=== PATIENT | female | born 1980 | race African-American/Black ===

== ENCOUNTER 2018-12-03 04:59 | Day surgery (SDC) | payer OTHER ==
[2018-11-26 11:22] VITALS: BMI 28.3
[2018-12-03] MEDS ORDERED: SUCCINYLCHOLINE CHLORIDE 200 MG/10 ML VIAL ONE (07:11)
[2018-12-03] MEDS ORDERED: PROPOFOL 20 ML ONE ×3 (07:11)
[2018-12-03] MEDS ORDERED: DEXAMETHASONE SOD PHOSPHATE/PF 10 MG/ML SDV ONE (07:17)
[2018-12-03] MEDS ORDERED: ROPIVACAINE HCL 0.5% 30ML VIAL ONE (07:17)
[2018-12-03] MEDS ORDERED: MIDAZOLAM HCL 2 MG/2 ML SINGLE DOSE VIAL ONE ×2 (07:18)
[2018-12-03] MEDS ORDERED: ceFAZolin SODIUM 1 GM VIAL ONE (08:31)
[2018-12-03] MEDS ORDERED: KETOROLAC TROMETHAMINE 30 MG/1 ML VIAL ONE (08:31)
[2018-12-03] MEDS ORDERED: DEXAMETHASONE SOD PHOSPHATE 4 MG/1 ML VIAL ONE (08:31)
--- NOTE | 2018-12-03 08:33 | HP ---
Satellite H - Chief Complaint Chief Complaint: left shoulder pain - Past Medical History Allergies/Adverse Reactions: Allergies Allergy/AdvReac Type Severity Reaction Status Date / Time No Known Allergies Allergy Verified 12/03/18 06:35 ...LMP: 11/14/18 - Current Medications Current Medications: Home Medications Medication Instructions Recorded Hydrocodone/Acetaminophen 1 each PO Q6H #40 tablet MDD 4 12/03/18 [Hydrocodone-Acetamin 5-325 mg] Satellite Physical Exam - Physical Examination Vital Signs: Vital Signs Period Temp Pulse Resp BP Sys/Cardona Pulse Ox Last 24 Hr 97.9 F-97.9 F 73-73 20-20 138-138/86-86 100 General Appearance: Well Nourished, Well Developed, Alert & Oriented x3 ENT: Clear Lung: Normal air movement Heart: Regular rate & rhythm Extremities: Other (left shoulder- + ttp, decr rom, + neer, + oneil, nvi MRI + impingement) Neurological: Intact, Alert, Oriented Satellite Impression/Plan - Impression/Plan Impression: left shoulder impingement Operative Procedure: left shoulder arthroscopy with MARYANN SPAIN Date to be Performed: 12/03/18
[2018-12-03] MEDS ORDERED: ceFAZolin SODIUM 1 GM VIAL IVPB ONE (08:36)
--- NOTE | 2018-12-03 09:42 | OP ---
Operative Note - Note: Operative Date: 12/03/18 Pre-Operative Diagnosis: left shoulder pain, impingement syndrome, adhesive capsulitis Operation: left shoulder arthroscopy, subacromial decompression, distal clavicle excision, manipulation under anesthesia Post-Operative Diagnosis: Same as Pre-op Surgeon: Christian Gray Anesthesiologist/FORENSIC TOXICOLOGIST: Bryant Trinh Anesthesia: General, Local Specimens Removed: shavings Estimated Blood Loss (mls): 25 Drains, Volume Out (mls): 0 Blood Volume Replaced (mls): 0 Fluid Volume Replaced (mls): 700 Operative Report Dictated: Yes
[2018-12-03] MEDS ORDERED: ONDANSETRON 4 MG/2 ML VIAL IVPUSH PRN (10:07)
[2018-12-03] MEDS ORDERED: oxyCODONE HCL 5 MG TABLET PO PRN ×2 (10:07)
[2018-12-03] MEDS ORDERED: LACTATED RINGERS SOLUTION 1,000 ML IV SCH (10:15)
--- NOTE | 2018-12-03 10:21 | OP ---
DATE OF OPERATION: 12/03/2018 PREOPERATIVE DIAGNOSIS: Left shoulder pain, adhesive capsulitis, and subacromial impingement. POSTOPERATIVE DIAGNOSIS: Left shoulder pain, adhesive capsulitis, and subacromial impingement. PROCEDURE: Left shoulder arthroscopy, subacromial decompression, distal clavicle excision, and manipulation under anesthesia. SURGEON: Christian Gray MD ASSISTANTS: None. DELIVERY LEAD: Bryant Trinh CRNA ANESTHESIA: Left interscalene block and LMA anesthesia. DRAINS: None. COMPLICATIONS: None. BLOOD LOSS: Minimal. BLOOD GIVEN: None. FLUID REPLACEMENT: 700 mL. SPECIMENS: None. DESCRIPTION OF PROCEDURE: This patient is a 38-year-old female with a preoperative diagnosis of a left shoulder pain, adhesive capsulitis, and subacromial impingement. After understanding the potential risks, complications, alternatives, and benefits of the surgery vs. non-surgical treatment, the patient elected to undergo this procedure. The patient was brought to the operating room, peripheral IV placed, and IV sedation was given. One gram of IV Ancef was given. LMA anesthesia was induced. She was placed into the beach-chair position with ample padding throughout the left upper extremity, was prepped and draped in sterile fashion. The bony landmarks were marked out with a marking pen. Posterior portal was established. A diagnostic arthroscopy was performed in the glenohumeral joint. The glenohumeral joint looked good. The labrum, the biceps tendon, the humeral head, the undersurface of the rotator cuff all looked pristine. I did a manipulation under anesthesia, and frankly, there was very little to manipulate. I felt a small increase in range of motion afterwards. There was never a point that it was very tight. I never felt like I stretched or tore through any adhesive capsule or scar tissue, and overall range of motion was practically normal. Next, our attention was turned to the subacromial space. Patient did have a lot of adhesive inflammatory bursitis. The lateral portal was established with a spinal needle, and Green cannula was introduced into the left subacromial space using previous scars. I did an extensive soft tissue debridement/bursectomy with the ArthroCare Wand. Once this was done, I looked at the top surface of the rotator cuff, and it looked pristine. I put the arm through a full range of motion. There was no rotator cuff tear. The patient did have a moderate-sized subclavicular and a large subacromial bony spur. These were both taken down with a 5.5-mm oval cindy. Photographs were taken before and after. I fine-tuned the decompression with the cindy in reverse and the shaver. Again, I looked at the rotator cuff through a full range of motion. Again, there were no points of compression, there was no impingement, but the patient did have large spurs, which were removed. The area was copiously irrigated and washed out. All instrumentation, excess saline, and debris were removed. The arthroscopic portals were closed with 3-0 nylon sutures. The area was then washed and dried and covered with Aquacel dressing. She was extubated and brought down out of the beach-chair position. A sling was applied. Total surgical time was about 40 minutes. There were no complications during the case. Patient tolerated the procedure quite well and was brought to the ambulatory recovery room in stable condition. Ishan [id number]
[2018-12-03 13:36] VITALS: BP 130/78; PULSE 68; TEMP 98
--- NOTE | 2018-12-04 17:27 | PATH ---
Surgical Pathology Report Patient Name: RIZWAN BONNER Med. Rec. #: [id number] /Age/Gender: 1980 (Age: 38) / F Account: [id number] Location: [facility] SURGICAL Taken: 12/03/2018 Received: 12/03/2018 Reported: 12/04/2018 Physicians: Christian Gray M.D. Specimen(s) Received LEFT SHOULDER SHAVINGS Clinical History Left shoulder impingement Final Diagnosis SHOULDER SHAVINGS, LEFT, ARTHROSCOPY: FRAGMENTS OF BENIGN CARTILAGE, DENSE FIBROCONNECTIVE TISSUE, ADIPOSE TISSUE, BONE, AND SKELETAL MUSCLE. Electronically Signed Fiona Gan M.D. Gross Description Received in formalin, labeled "left shoulder shavings" is a 5.0 x 3.5 x 0.3 cm. aggregate of dietz-yellow soft tissue fragments. A abrasives sales representative portion is submitted in one cassette. /12/03/2018 saudi12/03/2018
== END 2018-12-03 13:37 | disposition home or self-care (01) ==
LOC: JASU-SURG 04:59
PROVIDERS: ATTEND Orthopaedic Surgery
PROC: 0RNK4ZZ Release Left Shoulder Joint, Percutaneous Endoscopic Approach (ICD-10-PCS; principal; 2018-12-03 08:00)
PROC: 0PBB4ZZ Excision of Left Clavicle, Percutaneous Endoscopic Approach (ICD-10-PCS; 2018-12-03 08:00)
DX: M75.02 Adhesive capsulitis of left shoulder (principal); M75.42 Impingement syndrome of left shoulder; M25.512 Pain in left shoulder
CPT/HCPCS: 84703; 88304-TC; 94760

== ENCOUNTER 2019-10-27 17:19 | Emergency (ER) | payer OTHER ==
[2019-10-27 17:40] VITALS: BMI 25.5
--- NOTE | 2019-10-27 19:28 | PDOC ---
History of Present Illness - General Chief Complaint: Chest Pain Stated Complaint: CHEST PAIN, FEVER Time Seen by Provider: 10/27/19 18:48 History Source: Patient Exam Limitations: No Limitations - History of Present Illness Initial Comments: Patient is a 36-year-old female with history of fibroids, menometrorrhagia, anemia on B12 and iron, complaining of chest pain since today. Described the pain tightness and a pressure to the left chest which is 7.5/10. States has had this same pain when her iron was low. She took Motrin for the pain with no relief of symptoms. Also had some pain to the abdomen, which is chronic and she was told was caused by the fibroid. PMD: Dr. Mary Montgomery PMHX: as above PSOCHX neg cig, drug, etoh ALL: NKDA GENERAL/CONSTITUTIONAL: [No fever or chills. No weakness. No weight change.] HEAD, EYES, EARS, NOSE AND THROAT: [No change in vision. No ear pain or discharge. No sore throat.] CARDIOVASCULAR: [(+) chest pain or shortness of breath.] RESPIRATORY: [No cough, wheezing, or hemoptysis.] GASTROINTESTINAL: [No nausea, vomiting, diarrhea or constipation. No rectal bleeding.] GENITOURINARY: [No dysuria, frequency, or change in urination.] MUSCULOSKELETAL: [No joint or muscle swelling or pain. No neck or back pain.] SKIN AND BREASTS: [No rash or easy bruising.] NEUROLOGIC: [No headache, vertigo, loss of consciousness, or loss of sensation.] PSYCHIATRIC: [No depression or anxiety.] ENDOCRINE: [No increased thirst. No abnormal weight change.] HEMATOLOGIC/LYMPHATIC: [No anemia, easy bleeding, or history of blood clots.] ALLERGIC/IMMUNOLOGIC: [No hives or skin allergy. No latex allergy.] GENERAL: [The patient is awake, alert, and fully oriented, in no acute distress. ] HEAD: [Normal with no signs of trauma.] EYES: [Pupils equal, round and reactive to light, extraocular movements intact, sclera anicteric, conjunctiva clear.] ENT: [Ears normal, nares patent, oropharynx clear without exudates. Moist mucous membranes.] NECK: [Normal range of motion, supple without lymphadenopathy, JVD, or masses.] LUNGS: [Breath sounds equal, clear to auscultation bilaterally. No wheezes, and no crackles.] HEART: [Regular rate and rhythm, normal S1 and S2 without murmur, rub.] ABDOMEN: [Soft, mild tenderness to the left side, normoactive bowel sounds. No guarding, no rebound. No masses.] EXTREMITIES: [Normal range of motion, no edema. No clubbing or cyanosis. No cords, erythema, or tenderness.] NEUROLOGICAL: [Cranial nerves II through XII grossly intact. Normal speech, normal gait.] PSYCH: [Normal mood, normal affect.] SKIN: [Warm, Dry, normal turgor, no rashes or lesions noted.] 10/31/19 02:03 Past History - Past Medical History Allergies/Adverse Reactions: Allergies Allergy/AdvReac Type Severity Reaction Status Date / Time No Known Allergies Allergy Verified 10/27/19 17:36 Home Medications: Ambulatory Orders Hydrocodone/Acetaminophen [Hydrocodone-Acetamin 5-325 mg] 1 each PO Q6H #40 tablet MDD 4 12/03/18 - Surgical History Orthopedic Surgery: Yes (left shoulder, left knee) - Psycho Social/Smoking Cessation Hx Smoking History: Never smoked Have you smoked in the past 12 months: No Hx Alcohol Use: No Drug/Substance Use Hx: No Hx Substance Use Treatment: No *Physical Exam - Vital Signs Last Vital Signs Temp Pulse Resp BP Pulse Ox 97.9 F 64 18 164/93 100 10/28/19 01:40 10/28/19 01:40 10/28/19 01:40 10/28/19 01:40 10/28/19 01:40 ED Treatment Course - LABORATORY CBC & Chemistry Diagram: 10/27/19 19:30 10/27/19 19:30 - ADDITIONAL ORDERS Additional order review: 10/27/19 19:30 RBC 3.77 MCV 83.7 MCHC 32.5 RDW 13.9 D MPV 9.2 Neutrophils % 70.7 D Lymphocytes % 23.5 D Monocytes % 4.4 Eosinophils % 0.7 Basophils % 0.7 Medical Decision Making - Medical Decision Making Patient is a 36-year-old female with history of fibroids, menometrorrhagia, anemia on B12 and iron, complaining of chest pain since today. Described the pain tightness and a pressure to the left chest which is 7.5/10. States has had this same pain when her iron was low. She took Motrin for the pain with no relief of symptoms. Also had some pain to the abdomen, which is chronic and she was told was caused by the fibroid. Family history negative Patient with history of anemia will get labs rule out anemia. Labs reviewed noted to have hemoglobin of 10. No intervention required at this time will discharge. I discussed the physical exam findings, ancillary test results and final diagnoses with the patient. I answered all of the patient's questions. The patient was satisfied with the care received and felt comfortable with the discharge plan and treatment plan. The Patient agrees to follow up with the primary care physician within 24-72 hours. Discharge - Discharge Information Problems reviewed: Yes Clinical Impression/Diagnosis: Chest discomfort Condition: Stable Disposition: HOME - Follow up/Referral Referrals: Feliz Finney MD [Staff Physician] - Gentry Becker MD [Staff Physician] - Mary Montgomery MD [Primary Care Provider] - Errol Gudino MD [Staff Physician] - - Patient Discharge Instructions Patient Printed Discharge Instructions: DI for Atypical Chest Pain Additional Instructions: Your Discharge Instructions: You must call primary care physician within 24 hours to arrange follow-up. Return to the Emergency Department with any new, persistent or worsening symptoms, for fever, chills, SOB, dizziness or any other concerning changes that may occur. You must follow-up with cardiology in 1 to 2 days call for an appointment. - Post Discharge Activity Work/Back to School Note: Back to Work
[2019-10-27 20:16] LABS: BASO % 0.7 % (0-2.0); EOS % 0.7 % (0-4.5); HEMATOCRIT 31.6 % (32.4-45.2); HEMOGLOBIN 10.3 GM/dL (10.7-15.3); LYMPH % 23.5 % (8-40); MCH 27.3 pg (25.7-33.7); MCHC 32.5 g/dl (32.0-36.0); MEAN CELL VOLUME 83.7 fl (80-96); MEAN PLT VOLUME 9.2 fl (7.5-11.1); MONO % 4.4 % (3.8-10.2); NEUT % 70.7 % (42.8-82.8); PLATELET COUNT 503 K/MM3 (134-434); RBC 3.77 M/mm3 (3.60-5.2); RDW 13.9 % (11.6-15.6); WHITE BLOOD COUNT 7.9 K/mm3 (4.0-10.0)
[2019-10-27 20:30] LABS: INR 0.97 (0.83-1.09); PROTHROMBIN TIME (PATIENT) 11.5 SEC (9.7-13.0)
[2019-10-27 20:45] LABS: ALBUMIN 3.5 g/dl (3.4-5.0); BILIRUBIN,TOTAL 0.2 mg/dL (0.2-1); BLOOD UREA NITROGEN 9.3 mg/dL (7-18); CALCIUM 9.2 mg/dL (8.5-10.1); CREATININE 0.8 mg/dL (0.55-1.3); POTASSIUM 4.4 mmol/L (3.5-5.1); TOT PROT 6.8 g/dl (6.4-8.2)
[2019-10-28 02:16] VITALS: BP 164/93; PULSE 64; TEMP 97.9
--- NOTE | 2019-10-28 12:42 | EKG ---
Test Reason : Blood Pressure : / mmHG Vent. Rate : 068 BPM Atrial Rate : 068 BPM P-R Int : 124 ms QRS Dur : 084 ms QT Int : 362 ms P-R-T Axes : 025 026 029 degrees QTc Int : 384 ms NORMAL SINUS RHYTHM NORMAL ECG NO PREVIOUS ECGS AVAILABLE Confirmed by CHANDRA MARTINEZ MD ([id number]) on 10/28/2019 12:41:48 PM Referred By: Confirmed By:CHANDRA MARTINEZ MD
== END 2019-10-28 01:50 | disposition home or self-care (01) ==
LOC: JER 17:19
DX: R07.9 Chest pain, unspecified (principal); D64.9 Anemia, unspecified; D25.9 Leiomyoma of uterus, unspecified
CPT/HCPCS: 36415; 80053; 82550; 84484; 85025; 85610; 86850; 86900; 86901; 93005; 93010; 99283-25

== ENCOUNTER 2020-04-23 09:44 | Inpatient (IN) | payer OTHER ==
[2020-04-23 09:53] VITALS: BMI 26.7
[2020-04-23 10:30] LABS: BASO % 1.2 % (0-2.0); EOS % 2.1 % (0-4.5); HEMATOCRIT 21.2 % (32.4-45.2); MCH 23.1 pg (25.7-33.7); MCHC 30.2 g/dl (32.0-36.0); MEAN CELL VOLUME 76.6 fl (80-96); MEAN PLT VOLUME 8.9 fl (7.5-11.1); MONO % 5.8 % (3.8-10.2); NEUT % 69.9 % (42.8-82.8); PLATELET COUNT 409 K/MM3 (134-434); RBC 2.76 M/mm3 (3.60-5.2); RDW 21.5 % (11.6-15.6); WHITE BLOOD COUNT 4.9 K/mm3 (4.0-10.0)
[2020-04-23 10:35] LABS: HEMOGLOBIN 6.4 GM/dL (10.7-15.3)
[2020-04-23 10:36] LABS: INR 0.91 (0.83-1.09); PROTHROMBIN TIME (PATIENT) 10.7 SEC (9.7-13.0)
[2020-04-23 10:39] LABS: ACTIVATED PTT 29.5 SECONDS (25.2-36.5)
[2020-04-23 10:54] LABS: ALBUMIN 3.3 g/dl (3.4-5.0); BILIRUBIN,TOTAL 0.2 mg/dL (0.2-1); BLOOD UREA NITROGEN 8.2 mg/dL (7-18); CALCIUM 8.8 mg/dL (8.5-10.1); CREATININE 0.6 mg/dL (0.55-1.3); POTASSIUM 4.7 mmol/L (3.5-5.1); TOT PROT 6.2 g/dl (6.4-8.2)
--- NOTE | 2020-04-23 11:01 | PDOC ---
History of Present Illness - General Chief Complaint: Blood Transfusion Stated Complaint: SENT BY PCP FOR BLOOD TRANSFUSION Time Seen by Provider: 04/23/20 10:06 History Source: Patient Exam Limitations: No Limitations - History of Present Illness Initial Comments: 04/23/20 10:55 39F with PMH fibroids (scheduled for surgery here tomorrow), DUB, HTN p/w anemia requesting pre-op blood transfusion. States she got one unit last week, but repeat CBC was still low and she has been bleeding from her vagina. ROS positive for palpitations and otherwise negative. On PE, she has a systolic flow murmur she has known about for several years. She got pre-op clearance from a clay caster, who said he would do an ECHO after the surgery. She is also tender in LLQ and states this has been true for a year and is related to her fibroid. PMH: as above PSH: rotator cuff Meds: lisinopril All: none Denies alc/tob/drugs ROS GENERAL/CONSTITUTIONAL: No fever or chills. No weakness. HEAD, EYES, EARS, NOSE AND THROAT: No change in vision. No ear pain or discharge. No sore throat. CARDIOVASCULAR: No chest pain or shortness of breath. +palpitations RESPIRATORY: No cough, wheezing, or hemoptysis. GASTROINTESTINAL: No nausea, vomiting, diarrhea or constipation. GENITOURINARY: No dysuria, frequency, or change in urination. MUSCULOSKELETAL: No joint or muscle swelling or pain. No neck or back pain. SKIN: No rash NEUROLOGIC: No headache, vertigo, loss of consciousness, or change in strength/sensation. ENDOCRINE: No increased thirst. No abnormal weight change HEMATOLOGIC/LYMPHATIC: +anemia, +wharf helper bleeding, no easy bleeding, or history of blood clots. ALLERGIC/IMMUNOLOGIC: No hives or skin allergy. PE Vital Signs Temperature 98.2 F 04/23/20 09:48 Pulse Rate 86 04/23/20 09:48 Respiratory Rate 18 04/23/20 09:48 Blood Pressure 144/75 04/23/20 09:48 O2 Sat by Pulse Oximetry (%) 100 04/23/20 09:48 GENERAL: Awake, alert, and fully oriented, in no acute distress HEAD: No signs of trauma, normocephalic, atraumatic EYES: PERRLA, EOMI, sclera anicteric, conjunctiva clear ENT: Auricles normal inspection, hearing grossly normal, nares patent, oropharynx clear without exudates. Moist mucosa NECK: Normal ROM, supple, no lymphadenopathy, JVD, or masses LUNGS: No distress, speaks full sentences, clear to auscultation bilaterally HEART: Regular rate and rhythm, normal S1 and S2, 2/6 systolic murmur, no rubs or gallops, peripheral pulses normal and equal bilaterally. ABDOMEN: Soft, tender in LLQ, normoactive bowel sounds. No guarding, no rebound. No masses EXTREMITIES : Normal inspection, Normal range of motion, no edema. No clubbing or cyanosis. NEUROLOGICAL: Cranial nerves II through XII grossly intact. Normal speech, normal gait, no focal sensorimotor deficits SKIN: Warm, Dry, mucosal pallor, normal turgor, no rashes or lesions noted Assessment and Plan 39F with PMH fibroids (scheduled for surgery here tomorrow), DUB, HTN p/w anemia requesting pre-op blood transfsion. CBC here s 6.4. Will transfuse 1 unit in the ED and admit. No need for Covid swab given negative result on April 20. -CBC, CMP: Hb 6.4 -transfuse 1u PRBC -EKG, UA/UC -admit 04/23/20 11:50 -Spoke with Dr. Sky OBGYDebi who accepted the patient for admission Past History - Medical History Allergies/Adverse Reactions: Allergies Allergy/AdvReac Type Severity Reaction Status Date / Time No Known Allergies Allergy Verified 04/23/20 09:52 COPD: No - Surgical History Orthopedic Surgery: Yes (left shoulder, left knee) - Reproductive History Is Patient Now?: No - Psycho-Social/Smoking History Smoking History: Never smoked Have you smoked in the past 12 months: No - Substance Abuse Hx (Audit-C & DAST Scrn) How often the patient has a drink containing alcohol: Monthly or less Score: In Men: 4 or > Positive; In Women: 3 or > Positive: 1 Screen Result (Pos requires Nsg. Audit-10AR): Negative *Physical Exam - Vital Signs Last Vital Signs Temp Pulse Resp BP Pulse Ox 98.2 F 86 18 144/75 100 04/23/20 09:48 04/23/20 09:48 04/23/20 09:48 04/23/20 09:48 04/23/20 09:48 ED Treatment Course - LABORATORY CBC & Chemistry Diagram: 04/23/20 10:10 04/23/20 10:10 - ADDITIONAL ORDERS Additional order review: Laboratory Results 04/23/20 04/23/20 04/23/20 10:10 10:10 10:10 PT with INR 10.70 INR 0.91 PTT (Actin FS) 29.5 Sodium 143 Potassium 4.7 Chloride 113 H Carbon Dioxide 23 Anion Gap 7 L BUN 8.2 Creatinine 0.6 Est GFR (CKD-EPI)AfAm 134.01 Est GFR (CKD-EPI)NonAf 115.63 Random Glucose 94 Calcium 8.8 Total Bilirubin 0.2 AST 54 H ALT 15 Alkaline Phosphatase 48 Total Protein 6.2 L Albumin 3.3 L Crossmatch See Detail 04/23/20 10:10 RBC 2.76 L MCV 76.6 L MCHC 30.2 L RDW 21.5 H MPV 8.9 Neutrophils % 69.9 Lymphocytes % 21.0 Monocytes % 5.8 Eosinophils % 2.1 D Basophils % 1.2 Discharge - Discharge Information Problems reviewed: Yes Clinical Impression/Diagnosis: Fibroid, Transfusion of blood during current hospitalisation Anemia Qualifiers: Anemia type: iron deficiency Iron deficiency 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
[2020-04-23 11:44] LABS: ANISOCYTOSIS 2+; MACROCYTOSIS 0; PLATELET ESTIMATE NORMAL
--- NOTE | 2020-04-23 12:37 | PDOC ---
Documentation entered by Maty Mata SCRIBE, acting as scribe for Sonja Potts MD. Sonja Potts MD: This documentation has been prepared by the Adolfo wilhelm Nirvannie, SCRIBE, under my direction and personally reviewed by me in its entirety. I confirm that the documentation accurately reflects all work, treatment, procedures, and medical decision making performed by me. Attending Attestation - Resident Resident Name: SurajtayloretienneCarlos - ED Attending Attestation I have performed the following: I have examined & evaluated the patient, The case was reviewed & discussed with the resident, I agree w/resident's findings & plan, Exceptions are as noted - HPI HPI: 04/23/20 11:37 The patient is a 39 year old female with a significant past medical history fibroids (pending myomectomy tomorrow), dysfunctional uterine bleeding, anemia, hypertension who presents to the ED with anemia on outpatient labs. As per patient, she recently received a blood transfusion last week and on repeat CBC was found to still have a low hgb. She was advised to report to the ED by her OCCUPATIONAL ANALYST for a blood transfusion. She admits to vaginal bleeding but denies any palpitations, diaphoresis, chest pain, shortness of breath, or lightheadedness. Allergies: NKDA Primary Care Physician: Dr. Jimy Montgomery OCCUPATIONAL ANALYST: Dr. Cezar Sky - Physicial Exam PE: 04/23/20 11:38 GENERAL: Tearful upon exam. Pleasant. nontoxic-appearing, A/Ox4, no distress, answers questions appropriately HEENT: PERRLA, EOMI, moist mucous membranes NECK/BACK: no midline ttp, no spinal stepoff or deformity, no hematoma, full ROM, neck supple CARDIOVASCULAR: regular rate/rhythm, no MGR, strong peripheral pulses, capillary refill <2 seconds, extremities wwp, no edema LUNGS/RESPIRATORY: no respiratory distress, CTAB GI/ABDOMEN: symmetric [id number], normoactive BS, soft, no ttp, no midline pulsatile masses : no CVA tenderness MSK/EXTREMITIES: no muscle atrophy, no acute deformity SKIN: warm and dry, no pallor, no jaundice, no rash, no pathologic-appearing bruising, no skin breakdown, no cuts, no lesions NEUROLOGICAL: GCS 15, CN II-XII grossly intact, 5/5 strength proximally and distally, no facial droop - Medical Decision Making 04/23/20 12:27 39YOF with h/o anemia requiring blood transfusion, laste xfused week ago, p/w heavy vaginal bleeding and anemia on outpatient labs. Initial Vital Signs Temp Pulse Resp BP Pulse Ox 98.2 F 86 18 144/75 100 04/23/20 09:48 04/23/20 09:48 04/23/20 09:48 04/23/20 09:48 04/23/20 09:48 Most likely bleeding uterine fibroids as per her chronic diagnosis. Patient is scheduled for myomectomy tomorrow with Dr. Sky. Will get CBC and pre-op w/u, likely transfusion but will base this on her h/h. EKG: Reviewed; results as noted in ECG Review section. Laboratory Tests 04/23/20 04/23/20 04/23/20 10:10 10:10 10:10 WBC 4.9 RBC 2.76 L Hgb 6.4 L* Hct 21.2 L D MCV 76.6 L MCH 23.1 L D MCHC 30.2 L RDW 21.5 H Plt Count 409 MPV 8.9 Absolute Neuts (auto) 3.4 Neutrophils % 69.9 Lymphocytes % 21.0 Monocytes % 5.8 Eosinophils % 2.1 D Basophils % 1.2 Nucleated RBC % 0 Hypochromia 2+ Platelet Estimate Normal Polychromasia 1+ Poikilocytosis 1+ Anisocytosis 2+ Microcytosis 1+ Macrocytosis 0 Schistocytes 1+ PT with INR 10.70 INR 0.91 PTT (Actin FS) 29.5 Sodium 143 Potassium 4.7 Chloride 113 H Carbon Dioxide 23 Anion Gap 7 L BUN 8.2 Creatinine 0.6 Est GFR (CKD-EPI)AfAm 134.01 Est GFR (CKD-EPI)NonAf 115.63 Random Glucose 94 Calcium 8.8 Total Bilirubin 0.2 AST 54 H ALT 15 Alkaline Phosphatase 48 Total Protein 6.2 L Albumin 3.3 L Blood Type Antibody Screen Crossmatch 04/23/20 10:10 WBC RBC Hgb Hct MCV MCH MCHC RDW Plt Count MPV Absolute Neuts (auto) Neutrophils % Lymphocytes % Monocytes % Eosinophils % Basophils % Nucleated RBC % Hypochromia Platelet Estimate Polychromasia Poikilocytosis Anisocytosis Microcytosis Macrocytosis Schistocytes PT with INR INR PTT (Actin FS) Sodium Potassium Chloride Carbon Dioxide Anion Gap BUN Creatinine Est GFR (CKD-EPI)AfAm Est GFR (CKD-EPI)NonAf Random Glucose Calcium Total Bilirubin AST ALT Alkaline Phosphatase Total Protein Albumin Blood Type O POSITIVE Antibody Screen Negative Crossmatch See Detail The Pt is unsafe for discharge at this time. She is receiving pRBCs in the ED and will be admitted for post-transfusion observation and myomectomy tomorrow. Admission procedures carried out by resident team. Heart Score/ECG Review #1 04/23/20 11:49 Sinus rhythm, rate 61, normal axis and intervals, isolated TWI lead III, no ischemic ST-T changes Discharge - Discharge Information Problems reviewed: Yes Clinical Impression/Diagnosis: Fibroid, Transfusion of blood during current hospitalisation Anemia Qualifiers: Anemia type: iron deficiency Iron deficiency anemia type: chronic blood loss Qualified Code(s): D50.0 - Iron deficiency anemia secondary to blood loss (chronic) Condition: Stable - Admission Yes - Follow up/Referral - Patient Discharge Instructions - Post Discharge Activity
[2020-04-23] MEDS ORDERED: ONDANSETRON 4 MG/2 ML VIAL IVPUSH PRN (14:26)
[2020-04-23] MEDS ORDERED: DOCUSATE SODIUM 100 MG CAPSULE (FP) PO PRN (14:26)
[2020-04-23] MEDS ORDERED: BISACODYL 5 MG TABLET.DR (FP) PO PRN (14:26)
[2020-04-23] MEDS ORDERED: IBUPROFEN 800 MG/8 ML IJ IVPB PRN (14:26)
[2020-04-23] MEDS ORDERED: SIMETHICONE 80 MG TAB.CHEW (FP) PO PRN (14:26)
--- NOTE | 2020-04-23 14:34 | HP ---
Satellite H - Chief Complaint Chief Complaint: Anemia. Menorrhagia. Leiomyomatous Uterus History Source: Patient Limitations to Obtaining History: No Limitations - Past Medical History Allergies/Adverse Reactions: Allergies Allergy/AdvReac Type Severity Reaction Status Date / Time No Known Allergies Allergy Verified 04/23/20 09:52 ...LMP: 11/14/18 ...LMP Comment: unknown Heme/Onc: Yes: Anemia - Current Medications Current Medications: Home Medications Medication Instructions Recorded oxyCODONE HCL [Roxicodone -] 5 mg PO Q6H PRN #20 tablet MDD 5 04/25/20 Satellite Physical Exam - Physical Examination Vital Signs: Vital Signs Period Temp Pulse Resp BP Sys/Cardona Pulse Ox Last 24 Hr 97.9 F-98.3 F 62-86 18-20 130-149/75-94 99-100 General Appearance: Well Nourished, Well Developed ENT: Clear Heart: Regular rate & rhythm Abdomen: Soft Extremities: No edema Pelvic Exam: Within normal limits External Genitalia, Within normal limits Vagina, Within normal limits Cervix, Within normal limits [place], Other Uterus Neurological: Intact, Alert, Oriented Satellite Impression/Plan - Impression/Plan Impression: Severe Anemia. Leiomyomatous uterus. Menorrhagia. Acute blood loss Operative Procedure: Abdominal myomectomy tomorrow. Transfuse 2 units tonight. NPO after midght. cbc at 10 pm Date to be Performed: 04/24/20
[2020-04-23 14:41] LABS: EPI CELLS 11 /uL (0-25.1); HYALINE CASTS 4 /uL (0-3.1); PH,URINE 8.5 (5.0-8.0); URINE APPEARANCE TURBID; URINE BILIRUBIN 1+ (NEGATIVE); URINE COLOR RED; URINE GLUCOSE (UA) NEGATIVE (NEGATIVE); URINE KETONE NEGATIVE (NEGATIVE); URINE LEUK ESTERASE 1+ (NEGATIVE); URINE NITRITE POSITIVE (NEGATIVE); URINE PROTEIN 3+ (NEGATIVE); URINE RBC 37962 /uL (0-23.9); URINE UROBILINOGEN 0.2 mg/dL (0.2-1.0); URINE WBC 30 /uL (0-25.8)
[2020-04-23 15:20] LABS: URINE BACTERIA 38.2 /uL (0-1359)
--- NOTE | 2020-04-23 17:18 | EKG ---
Test Reason : Blood Pressure : / mmHG Vent. Rate : 061 BPM Atrial Rate : 061 BPM P-R Int : 114 ms QRS Dur : 084 ms QT Int : 372 ms P-R-T Axes : 023 020 019 degrees QTc Int : 374 ms POOR DATA QUALITY, INTERPRETATION MAY BE ADVERSELY AFFECTED NORMAL SINUS RHYTHM NORMAL ECG WHEN COMPARED WITH ECG OF 27-OCT-2019 17:32, NO SIGNIFICANT CHANGE WAS FOUND Confirmed by MD Ke, Christian ([id number]) on 04/23/2020 5:17:48 PM Referred By: Confirmed By:Christian Dempsey MD
[2020-04-23 19:01] LABS: HEMATOCRIT 26.5 % (32.4-45.2); HEMOGLOBIN 8.3 GM/dL (10.7-15.3); MCH 25.5 pg (25.7-33.7); MCHC 31.5 g/dl (32.0-36.0); MEAN CELL VOLUME 81.1 fl (80-96); MEAN PLT VOLUME 8.6 fl (7.5-11.1); PLATELET COUNT 342 K/MM3 (134-434); RBC 3.26 M/mm3 (3.60-5.2); RDW 21.7 % (11.6-15.6)
[2020-04-23 19:33] LABS: BLOOD UREA NITROGEN 7.4 mg/dL (7-18); CALCIUM 8.5 mg/dL (8.5-10.1); CREATININE 0.7 mg/dL (0.55-1.3); POTASSIUM 4.2 mmol/L (3.5-5.1)
[2020-04-23] MEDS: ACETAMINOPHEN 325 MG TABLET (FP) PO PRN ×2 (19:33→23:57)
[2020-04-23] MEDS ORDERED: LISINOPRIL 5 MG TABLET (FP) PO SCH (20:30)
[2020-04-24 00:49] LABS: EOS % 3.4 % (0-4.5); HEMOGLOBIN 10.9 GM/dL (10.7-15.3); LYMPH % 23.5 % (8-40); MCH 26.4 pg (25.7-33.7); MCHC 31.9 g/dl (32.0-36.0); MEAN CELL VOLUME 82.7 fl (80-96); MEAN PLT VOLUME 9.1 fl (7.5-11.1); MONO % 6.5 % (3.8-10.2); NEUT % 65.6 % (42.8-82.8); PLATELET COUNT 336 K/MM3 (134-434); RBC 4.12 M/mm3 (3.60-5.2); RDW 19.2 % (11.6-15.6); WHITE BLOOD COUNT 7.7 K/mm3 (4.0-10.0)
[2020-04-24] MEDS ORDERED: CEFAZOLIN 1 GM/D5W 1 GM/50 ML BAG IVPB SCH ×2 (02:00→18:00)
[2020-04-24] MEDS ORDERED: NIFEdipine E.R. 30 MG TABLET PO ONE (04:45)
[2020-04-24 09:01] LABS: HEMOGLOBIN 10.4 GM/dL (10.7-15.3); MCH 26.2 pg (25.7-33.7); MCHC 32.7 g/dl (32.0-36.0); MEAN CELL VOLUME 80.3 fl (80-96); MEAN PLT VOLUME 8.6 fl (7.5-11.1); PLATELET COUNT 350 K/MM3 (134-434); RBC 3.98 M/mm3 (3.60-5.2); WHITE BLOOD COUNT 7.4 K/mm3 (4.0-10.0)
[2020-04-24 09:22] LABS: BLOOD UREA NITROGEN 5.4 mg/dL (7-18); CALCIUM 8.6 mg/dL (8.5-10.1); CREATININE 0.7 mg/dL (0.55-1.3); POTASSIUM 4.4 mmol/L (3.5-5.1)
[2020-04-24] MEDS ORDERED: ENOXAPARIN NA (PORCINE) 40 MG/0.4 ML DISP.SYRIN SQ SCH (10:00)
[2020-04-24] MEDS ORDERED: ROPIVACAINE HCL 0.5% 30ML VIAL ONE (10:35)
[2020-04-24] MEDS ORDERED: DEXAMETHASONE SOD PHOSPHATE/PF 10 MG/ML SDV ONE (10:49)
[2020-04-24] MEDS ORDERED: BUPIVACAINE HCL 150 ML ONE (10:50)
[2020-04-24] MEDS ORDERED: MIDAZOLAM HCL 2 MG/2 ML SINGLE DOSE VIAL ONE ×2 (10:52)
[2020-04-24] MEDS ORDERED: ceFAZolin SODIUM 1 GM VIAL IVPB ONE (11:19)
[2020-04-24] MEDS ORDERED: ESMOLOL HCL 100,000 MCG/10 ML VIAL ONE (11:31)
--- NOTE | 2020-04-24 13:16 | OP ---
Operative Note - Note: Operative Date: 04/24/20 Pre-Operative Diagnosis: fibroid uterus, menorrhagia Operation: Open myomectomy Post-Operative Diagnosis: Same as Pre-op Surgeon: Ivonne Sky Lamp [place]ade Sewer: Emanuel Saxena Anesthesiologist/[employer] MACHINE OPERATOR HELPER: Kavya Castano Anesthesia: General Estimated Blood Loss (mls): 150 Operative Report Dictated: Yes
--- NOTE | 2020-04-24 13:17 | SURG ---
Surgery Laborer Landscape Note Laborer Landscape: Emanuel Saxena PA-C Date of Service: 04/24/20 Diagnosis: fibroid uterus, menorrhgria Procedure: Abdominal myomectomy I was present for the entirety of the operative procedure. For further detail, please refer to operative report. Visit type - Case Type Case Type: ED Admission - Emergency Emergency Visit: Yes ED Registration Date: 04/23/20 Care time: The patient presented to the Emergency Department on the above date and was hospitalized for further evaluation of their emergent condition. - New patient This patient is new to me today: Yes Date on this admission: 04/24/20 - Critical Care Critical Care patient: No
[2020-04-24] MEDS ORDERED: DOCUSATE SODIUM 100 MG CAPSULE (FP) PO PRN (13:42)
[2020-04-24] MEDS ORDERED: BISACODYL 5 MG TABLET.DR (FP) PO PRN (13:42)
[2020-04-24] MEDS ORDERED: IBUPROFEN 800 MG/8 ML IJ IVPB PRN (13:42)
[2020-04-24] MEDS ORDERED: SIMETHICONE 80 MG TAB.CHEW (FP) PO PRN (13:42)
[2020-04-24] MEDS ORDERED: ACETAMINOPHEN 325 MG TABLET (FP) PO PRN (13:42)
[2020-04-24] MEDS ORDERED: ONDANSETRON 4 MG/2 ML VIAL IVPUSH PRN (13:42)
[2020-04-24] MEDS ORDERED: ACETAMINOPHEN INJECTION 100 ML IVPB ONE (13:51)
[2020-04-24] MEDS ORDERED: ACETAMINOPHEN 1000 MG/100 ML VIAL (NON FORMULARY) IVPB ONE (13:55)
[2020-04-24] MEDS ORDERED: ONDANSETRON 4 MG/2 ML VIAL ONE (14:04)
[2020-04-24] MEDS: ACETAMINOPHEN 1000 MG/100 ML VIAL (NON FORMULARY) IVPB SCH ×2 (15:01→21:07)
[2020-04-24] MEDS: LACTATED RINGERS SOLUTION 1,000 ML IV SCH (16:40)
[2020-04-24] MEDS ORDERED: oxyCODONE HCL 5 MG TABLET PO PRN (17:49)
[2020-04-24] MEDS ORDERED: oxyCODONE HCL 5 MG TABLET ONE (18:12)
[2020-04-24] MEDS: oxyCODONE HCL 5 MG TABLET PO PRN (18:13)
[2020-04-24] MEDS ORDERED: LISINOPRIL 5 MG TABLET (FP) PO SCH (20:30)
[2020-04-24 20:39] LABS: HEMATOCRIT 32.1 % (32.4-45.2); HEMOGLOBIN 10.1 GM/dL (10.7-15.3); LYMPH % 1.6 % (8-40); MCH 25.8 pg (25.7-33.7); MCHC 31.5 g/dl (32.0-36.0); MEAN CELL VOLUME 81.8 fl (80-96); MEAN PLT VOLUME 9.1 fl (7.5-11.1); MONO % 1.7 % (3.8-10.2); NEUT % 96.7 % (42.8-82.8); PLATELET COUNT 355 K/MM3 (134-434); RBC 3.92 M/mm3 (3.60-5.2); RDW 19.2 % (11.6-15.6); WHITE BLOOD COUNT 16.1 K/mm3 (4.0-10.0)
[2020-04-24 21:48] LABS: ANISOCYTOSIS 1+; PLATELET ESTIMATE ADEQUATE
[2020-04-25] MEDS: oxyCODONE HCL 5 MG TABLET PO PRN (01:48)
[2020-04-25] MEDS: ACETAMINOPHEN 1000 MG/100 ML VIAL (NON FORMULARY) IVPB SCH ×2 (03:29→08:30)
[2020-04-25] MEDS: LACTATED RINGERS SOLUTION 1,000 ML IV SCH (03:29)
[2020-04-25 08:11] LABS: BASO % 0.3 % (0-2.0); HEMATOCRIT 29.1 % (32.4-45.2); HEMOGLOBIN 9.2 GM/dL (10.7-15.3); LYMPH % 5.9 % (8-40); MCH 25.8 pg (25.7-33.7); MCHC 31.6 g/dl (32.0-36.0); MEAN CELL VOLUME 81.7 fl (80-96); MEAN PLT VOLUME 9.2 fl (7.5-11.1); MONO % 6.4 % (3.8-10.2); NEUT % 87.4 % (42.8-82.8); PLATELET COUNT 356 K/MM3 (134-434); RBC 3.57 M/mm3 (3.60-5.2); RDW 19.5 % (11.6-15.6); WHITE BLOOD COUNT 13.4 K/mm3 (4.0-10.0)
[2020-04-25 08:33] LABS: BLOOD UREA NITROGEN 5.2 mg/dL (7-18); CALCIUM 8.8 mg/dL (8.5-10.1); CREATININE 0.6 mg/dL (0.55-1.3); POTASSIUM 4.6 mmol/L (3.5-5.1)
[2020-04-25] MEDS ORDERED: oxyCODONE HCL 5 MG TABLET PO PRN ×4 (10:00)
[2020-04-25] MEDS ORDERED: ENOXAPARIN NA (PORCINE) 40 MG/0.4 ML DISP.SYRIN SQ SCH (10:00)
--- NOTE | 2020-04-25 10:02 | PN ---
Progress Note (short form) - Note Progress Note: Anesthesia Post op/pain Pt seen and examined S:Alert and awake, comfortable O: Vital Signs Temperature 97.5 F L 04/25/20 07:58 Pulse Rate 61 04/25/20 07:58 Respiratory Rate 20 04/25/20 08:01 Blood Pressure 137/76 04/25/20 07:58 O2 Sat by Pulse Oximetry (%) 98 04/25/20 08:01 CBC, BMP 04/25/20 05:48 04/25/20 05:48 A/P Current Active Problems Anemia (Acute) Fibroid (Acute) Transfusion of blood during current hospitalisation (Acute) s/p Abdominal Myomectomy Doing well post op Continue current care Abdirashid Conroy M.D.
--- NOTE | 2020-04-25 13:45 | DS ---
Physical Exam: SUBJECTIVE: Patient seen and examined OBJECTIVE: Vital Signs Temperature 97.5 F L 04/25/20 07:58 Pulse Rate 61 04/25/20 07:58 Respiratory Rate 20 04/25/20 08:01 Blood Pressure 137/76 04/25/20 07:58 O2 Sat by Pulse Oximetry (%) 98 04/25/20 08:01 PHYSICAL EXAM GENERAL: The patient is awake, alert, and fully oriented, in no acute distress. HEAD: Normal with no signs of trauma. EYES: PERRL, extraocular movements intact, sclera anicteric, conjunctiva clear. ENT: Ears normal, nares patent, oropharynx clear without exudates, moist mucous membranes. NECK: Trachea midline, full range of motion, supple. LUNGS: Breath sounds equal, clear to auscultation bilaterally, no wheezes, no crackles, no accessory muscle use. HEART: Regular rate and rhythm, S1, S2 without murmur, rub or gallop. ABDOMEN: Soft, nontender, nondistended, normoactive bowel sounds, no guarding, no rebound, no hepatosplenomegaly, no masses. EXTREMITIES: warm, well-perfused, no edema. NEUROLOGICAL: Cranial nerves II through XII grossly intact. Normal speech, gait not observed. PSYCH: Normal mood, normal affect. SKIN: Warm, dry, normal turgor, no rashes or lesions noted. LABS CBC,CMP WBC 13.4 K/mm3 (4.0-10.0) H 04/25/20 05:48 RBC 3.57 M/mm3 (3.60-5.2) L 04/25/20 05:48 Hgb 9.2 GM/dL (10.7-15.3) L 04/25/20 05:48 Hct 29.1 % (32.4-45.2) L 04/25/20 05:48 MCV 81.7 fl (80-96) 04/25/20 05:48 MCH 25.8 pg (25.7-33.7) 04/25/20 05:48 MCHC 31.6 g/dl (32.0-36.0) L 04/25/20 05:48 RDW 19.5 % (11.6-15.6) H 04/25/20 05:48 Plt Count 356 K/MM3 (134-434) 04/25/20 05:48 MPV 9.2 fl (7.5-11.1) 04/25/20 05:48 Absolute Neuts (auto) 11.7 K/mm3 (1.5-8.0) H 04/25/20 05:48 Neutrophils % 87.4 % (42.8-82.8) H 04/25/20 05:48 Neutrophils % (Manual) 95.0 % (42.8-82.8) H 04/24/20 20:00 Band Neutrophils % 2.0 % 04/24/20 20:00 Lymphocytes % 5.9 % (8-40) L D 04/25/20 05:48 Lymphocytes % (Manual) 3.0 % (8-40) L 04/24/20 20:00 Monocytes % 6.4 % (3.8-10.2) D 04/25/20 05:48 Monocytes % (Manual) 0 % (3.8-10.2) L 04/24/20 20:00 Eosinophils % 0.0 % (0-4.5) 04/25/20 05:48 Eosinophils % (Manual) 0.0 % (0-4.5) 04/24/20 20:00 Basophils % 0.3 % (0-2.0) D 04/25/20 05:48 Basophils % (Manual) 0.0 % (0-2.0) 04/24/20 20:00 Nucleated RBC % 0 % (0-0) 04/25/20 05:48 Hypochromia 2+ 04/23/20 10:10 Platelet Estimate Adequate 04/24/20 20:00 Polychromasia 1+ 04/23/20 10:10 Poikilocytosis 1+ 04/23/20 10:10 Anisocytosis 1+ 04/24/20 20:00 Microcytosis 1+ 04/23/20 10:10 Macrocytosis 0 04/23/20 10:10 Schistocytes 1+ 04/23/20 10:10 Sodium 141 mmol/L (136-145) 04/25/20 05:48 Potassium 4.6 mmol/L (3.5-5.1) 04/25/20 05:48 Chloride 108 mmol/L (98-107) H 04/25/20 05:48 Carbon Dioxide 27 mmol/L (21-32) 04/25/20 05:48 Anion Gap 7 MMOL/L (8-16) L 04/25/20 05:48 BUN 5.2 mg/dL (7-18) L 04/25/20 05:48 Creatinine 0.6 mg/dL (0.55-1.3) 04/25/20 05:48 Est GFR (CKD-EPI)AfAm 134.01 04/25/20 05:48 Est GFR (CKD-EPI)NonAf 115.63 04/25/20 05:48 Random Glucose 103 mg/dL (74-106) 04/25/20 05:48 Calcium 8.8 mg/dL (8.5-10.1) 04/25/20 05:48 Total Bilirubin 0.2 mg/dL (0.2-1) 04/23/20 10:10 AST 54 U/L (15-37) H 04/23/20 10:10 ALT 15 U/L (13-61) 04/23/20 10:10 Alkaline Phosphatase 48 U/L (45-117) 04/23/20 10:10 Total Protein 6.2 g/dl (6.4-8.2) L 04/23/20 10:10 Albumin 3.3 g/dl (3.4-5.0) L 04/23/20 10:10 HOSPITAL COURSE: Date of Admission:04/23/20 Date of Discharge: 04/25/20 The patient was admitted to the Med-Surg Unit after developing anemia due to significant menorrhagia, pt was given pRBCs x 3 and Hgb stabilized. Pt had emergent repair of her leiomyomas/pelvic pain. Now, s/p open abdominal myome ctomy. Pain management was achieved with a narcotic and non-narcotic oral and IV regimen. POD #1, the patient passed flatus and diet was advanced. Hemoglobin and hematocrit were monitored as well as vitals and remained stable throughout admission. [place]-operative IV ABX were administered. DVT prophylaxis was achieved with Lovenox 40mg qd, SCDs and early ambulation. The patient ambulated the halls without issue. Narcotic scripts were checked with [facility] CHANGE MANAGEMENT SPECIALIST prior to escribe. The discharge instructions and an oral pain management plan were reviewed with the patient. All questions answered. Above p mamta discussed with Dr. Sky and agreed. Minutes to complete discharge: 20 Visit type - Case Type Case Type: ED Admission - Emergency Emergency Visit: Yes ED Registration Date: 04/23/20 Care time: The patient presented to the Emergency Department on the above date and was hospitalized for further evaluation of their emergent condition. - New patient This patient is new to me today: No - Critical Care Critical Care patient: No
[2020-04-25 15:25] VITALS: BP 139/79; PULSE 71; TEMP 97.7
--- NOTE | 2020-04-26 16:57 | OP ---
DATE OF OPERATION: 04/24/2020 PREOPERATIVE DIAGNOSIS: Leiomyomatous uterus. OPERATION: Abdominal myomectomy. POSTOPERATIVE DIAGNOSIS: Leiomyomatous uterus. SURGEON: Lashell Sky MD. OTOLARYNGOLOGIST: OK Wells. ANESTHESIA: General. PROCEDURE: Patient was taken to the operating room, placed in supine position. Prepped and draped in usual sterile fashion. Timeout was performed in accordance with hospital regulation. Pfannenstiel skin incision was made. Cautery was then used to go through layers of abdominal wall to the layers of fascia. Fascia was cut in the midline. Cautery was then used to open the fascia in a smiley fashion. [place] was then used to bluntly and sharply dissect the rectus muscles off the fascia. Muscle was split in the midline. Peritoneal cavity was then entered, carried up and down. Leiomyomatous uterus was then exteriorized. Large myoma was seen in the anterior aspect of the uterus. Cautery of the transverse incision was made uterus. Cautery was then used to go down to the layer of the myoma. Myoma was then enucleated out using sharp and blunt dissection. Endometrial cavity was not removed and was carefully entered and myoma was approximately 8-cm myoma, was removed anteriorly. The endometrial cavity was then repaired carefully using 2-0 Vicryl suture, not going within the endometrial cavity, and then layers were then used to close the uterus in a continuous locking fashion. The muscles of the uterus were then closed. Serosa of the uterus was closed using 2-0 V-Loc suture. Hemostasis was achieved. Repair of tenaculum site in posterior was done using V-Loc suture. No other myomas were removed. Interceed was placed both anteriorly and posteriorly and sewn in place for hemostasis. Uterus interiorized. Abdominal cavity cleaned with clean lap pads. The abdominal sweep was done. Estimated blood loss was approximately 150 mL. Peritoneal cavity was then closed using 0 Biosyn suture. Fascia was then closed using 0 Vicryl suture in 2 parts. Skin was then closed using 3-0 Vicryl in subcuticular fashion. Wound was washed and dressed. Patient tolerated procedure well. Estimated blood loss was again 150 mL. LASHELL SKY M.D. [id number]
--- NOTE | 2020-04-26 17:56 | PATH ---
Surgical Pathology Report Patient Name: RIZWAN BONNER Med. Rec. #: [id number] /Age/Gender: 1980 (Age: 39) / F Account: [id number] Location: 4 W TELEMETRY U Taken: 04/24/2020 Received: 04/25/2020 Reported: 04/26/2020 Physicians: Ivonne Sky M.D. PHYSICIAN EMERGENCY DEPT Specimen(s) Received A: FIBROIDS B: LEFT OVARIAN CYSTECTOMY Clinical History Fibrous, anemia Final Diagnosis A. FIBROIDS, ABDOMINAL MYOMECTOMY: 183 G LEIOMYOMA. B. OVARIAN, LEFT, CYSTECTOMY: BENIGN CYST LINING, CONSISTENT WITH FOLLICULAR CYST. Electronically Signed Fiona Gan M.D. Gross Description A. Received in formalin labeled "fibroids," is a 183 g dietz, rubbery nodule measuring 9 x 6 x 5 cm, consistent with fibroids. Sectioning reveals dietz, rubbery parenchyma with whorled architecture. No areas of hemorrhage or necrosis are identified. Manager Patient sections are submitted in 5 cassettes. B. Received in formalin labeled "left ovarian cystectomy" are 2 fragments of dietz fibromembranous tissue measuring 3 x 0.3 x 0.2 and 4 x 3 x 0.2 cm. The entire specimen is submitted in one cassette.
== END 2020-04-25 18:34 | disposition home or self-care (01) | DRG 519 ==
LOC: JER 09:44 → JERBED 10:46 → J3W 13:00 → J4W 04-24 15:31
PROVIDERS: ADMIT Obstetrics & Gynecology; ATTEND Obstetrics & Gynecology
PROC: 30233N1 Transfusion of Nonautologous Red Blood Cells into Peripheral Vein, Percutaneous Approach (ICD-10-PCS; 2020-04-23)
PROC: 0UB10ZZ Excision of Left Ovary, Open Approach (ICD-10-PCS; 2020-04-24)
PROC: 0UB90ZZ Excision of Uterus, Open Approach (ICD-10-PCS; principal; 2020-04-24 09:30)
DX: D25.9 Leiomyoma of uterus, unspecified (principal); N92.0 Excessive and frequent menstruation with regular cycle; D62 Acute posthemorrhagic anemia; N83.02 Follicular cyst of left ovary
CPT/HCPCS: 36415; 36430; 36511; 80048; 80053; 81003; 81025; 85025; 85027; 85610; 85730; 86850; 86900; 86901; 86922; 87086; 88305-TC; 93005; 93010; 94010; 94760; 99285-25; J0131; P9038; P9058